=== PATIENT | male | born 1975 | race African-American/Black ===

== ENCOUNTER 2016-11-20 16:23 | Emergency (ER) | payer MEDICARE, MEDICAID ==
[~2016-11-20] VITALS: Ht 182.9 cm; Wt 106.0 kg
[~2016-11-20 16:23] MED LIST: BUPR300T52 PO; FEBU40TA PO; METF500T4 PO; MULT-1146 PO; TRIUMEQ PO
[2016-11-20] MEDS ORDERED: LORAZEPAM 2MG/ML CPJ IV ONE (20:00)
[2016-11-20 20:32] LABS: GLUCOSE URINE NEGATIVE (NEGATIVE); KETONES URINE TRACE (NEGATIVE); LEUKOCYTE ESTERASE URINE NEGATIVE (NEGATIVE); NITRITE URINE NEGATIVE (NEGATIVE); OCCULT BLOOD URINE NEGATIVE (NEGATIVE); PROTEIN URINE NEGATIVE (NEGATIVE); SPECIFIC GRAVITY URINE 1.015 (1.005-1.030); UROBILINOGEN URINE 0.2 E.U./dL (0.2-1.0)
[2016-11-20 20:32] LABS: BASOPHILS % 0.4 % (0.0-2.0); EOSINOPHILS % 0.9 % (0.0-5.0); HEMATOCRIT. 40.5 % (42.0-52.0); HEMOGLOBIN. 13.7 g/dL (14.0-18.0); LYMPHOCYTES % 17.5 % (20.0-50.0); MEAN CORPUSCULAR HEMOGLOBIN 32.8 pg (28.0-32.0); MEAN CORPUSCULAR HGB CONC 33.7 g/dL (31.0-37.0); MEAN CORPUSCULAR VOLUME 97.3 fL (80.0-94.0); MEAN PLATELET VOLUME 9.6 fl (7.4-10.4); MONOCYTES % 8.6 % (2.0-8.0); NEUTROPHILS % 72.6 % (40.0-76.0); PLATELET 195 x1000/uL (130-400); RED BLOOD CELL COUNT 4.16 mill/uL (4.7-6.1); RED CELL DISTRIBUTION WIDTH 13.6 % (11.6-14.6); WHITE BLOOD COUNT 5.7 x1000/uL (4.5-11.0)
[2016-11-20 20:35] LABS: CLARITY URINE CLEAR (CLEAR); COLOR URINE YELLOW (YELLOW)
[2016-11-20 20:40] LABS: *AMPHETAMINES SCREEN URINE PRESUMTIVE POSITIVE (NEGATIVE); *BARBITURATES SCREEN URINE NEGATIVE (NEGATIVE); *BENZODIAZEPINES SCREEN URINE NEGATIVE (NEGATIVE); *COCAINE SCREEN URINE NEGATIVE (NEGATIVE); CANNABINOID URINE SCREEN PRESUMTIVE POSITIVE (NEGATIVE); ECSTASY MDMA SCREEN URINE NEGATIVE (NEGATIVE); METHADONE URINE SCREEN NEGATIVE (NEGATIVE); OPIATES URINE SCREEN PRESUMTIVE POSITIVE (NEGATIVE); PHENCYCLIDINE URINE SCREEN NEGATIVE (NEGATIVE)
[2016-11-20 20:41] LABS: AMMONIA 45 uMol/L (<32); INDEX HEMOLYSI 1 (1-3)
[2016-11-20 20:43] LABS: ACETAMINOPHEN 3 ug/mL (10-30); ALANINE AMINOTRANSFERASE 33 IU/L (13-61); ALBUMIN 4.5 g/dL (3.4-5.0); ANION GAP 14; CALCIUM 8.9 mg/dL (8.5-10.1); CARBON DIOXIDE 27 mEq/L (21-32); CHLORIDE 105 mEq/L (98-107); ETHANOL BLOOD < 10 mg/dL; INDEX HEMOLYSI 1 (1-3); INDEX ICTERIC 1 (1-4); INDEX LIPEMIC 1 (1-3); TROPONIN I < 0.02 ng/mL (0.00-0.04); UREA NITROGEN BLOOD 12 mg/dL (7-21); eGFR > 60 mL/min (>60)
[2016-11-21 06:13] VITALS: BP 130/78
== END 2016-11-21 06:12 | disposition home or self-care (01) ==
LOC: ER 16:23
DX: R41.82 Altered mental status, unspecified (principal); F19.10 Other psychoactive substance abuse, uncomplicated
CPT/HCPCS: 36415; 70450; 80053; 80305; 80307; 80329; 81003; 82140; 84484; 85025; 96374; 99285; G0482; J2060

== ENCOUNTER 2017-04-18 03:43 | Emergency (ER) | payer MEDICARE, MEDICAID ==
[~2017-04-18] VITALS: Ht 167.6 cm; Wt 85.0 kg
[2017-04-18] MEDS ORDERED: KETOROLAC 60MG/2ML VIAL IM ONE (07:30)
[2017-04-18 07:41] VITALS: BP 121/71
== END 2017-04-18 08:09 | disposition home or self-care (01) ==
LOC: ER 03:43
DX: T63.301A Toxic effect of unspecified spider venom, accidental (unintentional), initial encounter (principal); L03.115 Cellulitis of right lower limb; W57.XXXA Bitten or stung by nonvenomous insect and other nonvenomous arthropods, initial encounter; Y93.89 Activity, other specified; Y92.89 Other specified places as the place of occurrence of the external cause; F17.210 Nicotine dependence, cigarettes, uncomplicated; F12.90 Cannabis use, unspecified, uncomplicated; E11.9 Type 2 diabetes mellitus without complications; K50.90 Crohn's disease, unspecified, without complications; Z79.84 Long term (current) use of oral hypoglycemic drugs
CPT/HCPCS: 96372; 99283; J1885

== ENCOUNTER 2017-12-21 13:07 | Emergency (ER) | payer MEDICARE, MEDICAID ==
[~2017-12-21] VITALS: Ht 167.6 cm; Wt 82.0 kg
[2017-12-21 14:29] LABS: BASOPHILS % 0.3 % (0.0-2.0); CHLORIDE 105 mEq/L (98-107); EOSINOPHILS % 1.7 % (0.0-5.0); HEMATOCRIT. 37.4 % (42.0-52.0); HEMOGLOBIN. 13.1 g/dL (14.0-18.0); LYMPHOCYTES % 28.4 % (20.0-50.0); MEAN CORPUSCULAR HEMOGLOBIN 33.1 pg (28.0-32.0); MEAN CORPUSCULAR VOLUME 94.6 fL (80.0-94.0); MONOCYTES % 8.3 % (2.0-8.0); NEUTROPHILS % 61.3 % (40.0-76.0); PLATELET 240 x1000/uL (130-400); RED BLOOD CELL COUNT 3.95 mill/uL (4.7-6.1); RED CELL DISTRIBUTION WIDTH 14.7 % (11.6-14.6)
[2017-12-21 14:32] LABS: CLARITY URINE CLEAR (CLEAR); COLOR URINE YELLOW (YELLOW); KETONES URINE NEGATIVE (NEGATIVE); LEUKOCYTE ESTERASE URINE 1+ (NEGATIVE); NITRITE URINE NEGATIVE (NEGATIVE); OCCULT BLOOD URINE NEGATIVE (NEGATIVE); PROTEIN URINE NEGATIVE (NEGATIVE); SPECIFIC GRAVITY URINE 1.017 (1.005-1.030); UROBILINOGEN URINE 0.2 E.U./dL (0.2-1.0)
[2017-12-21 14:45] VITALS: BP 111/78
[2017-12-21] MEDS ORDERED: KETOROLAC 30MG/ML VIAL IM ONE (14:45)
== END 2017-12-21 16:41 | disposition home or self-care (01) ==
LOC: ER 13:23
DX: R10.9 Unspecified abdominal pain (principal); M79.671 Pain in right foot; M79.672 Pain in left foot; F41.9 Anxiety disorder, unspecified; M10.9 Gout, unspecified; E11.9 Type 2 diabetes mellitus without complications; I10 Essential (primary) hypertension; F31.9 Bipolar disorder, unspecified; K50.90 Crohn's disease, unspecified, without complications; F12.10 Cannabis abuse, uncomplicated; F14.10 Cocaine abuse, uncomplicated; F15.10 Other stimulant abuse, uncomplicated
CPT/HCPCS: 36415; 74176; 80053; 81003; 83690; 85025; 96372; 99285; J1885

== ENCOUNTER 2017-12-30 06:38 | Emergency (ER) | payer MEDICARE, MEDICAID ==
[~2017-12-30] VITALS: Ht 167.6 cm; Wt 88.0 kg
[2017-12-30] MEDS ORDERED: MORPHINE SULFATE 10 MG/ML CPJ IM ONE (07:00)
[2017-12-30] MEDS ORDERED: KETOROLAC 60MG/2ML VIAL IM ONE (07:00)
[2017-12-30 08:15] VITALS: BP 125/68
== END 2017-12-30 08:16 | disposition home or self-care (01) ==
LOC: ER 06:38
DX: M54.5 Low back pain (principal); M46.96 Unspecified inflammatory spondylopathy, lumbar region; E11.9 Type 2 diabetes mellitus without complications; F12.10 Cannabis abuse, uncomplicated; F15.10 Other stimulant abuse, uncomplicated; F11.10 Opioid abuse, uncomplicated
CPT/HCPCS: 96372; 99284; J1885; J2270

== ENCOUNTER 2018-03-18 10:31 | Emergency (ER) | payer MEDICARE, MEDICAID ==
[~2018-03-18] VITALS: Ht 167.6 cm; Wt 80.4 kg
[~2018-03-18 10:31] MED LIST changes: -METF500T4 PO; +METF500T6 PO
[2018-03-18] MEDS ORDERED: SODIUM CHLORIDE 0.9% 1,000 ML IV ONE (16:34)
[2018-03-18] MEDS ORDERED: IPRATROPIUM BROMIDE (0.02%) 0.5MG/2.5ML NEB HHN ONE (16:45)
[2018-03-18] MEDS ORDERED: ALBUTEROL (0.5%) 2.5MG/0.5ML NEB HHN ONE (16:45)
[2018-03-18 17:51] LABS: BASOPHILS % 0.5 % (0.0-2.0); EOSINOPHILS % 2.5 % (0.0-5.0); HEMATOCRIT. 43.4 % (42.0-52.0); LYMPHOCYTES % 39.7 % (20.0-50.0); MEAN CORPUSCULAR HEMOGLOBIN 32.3 pg (28.0-32.0); MEAN CORPUSCULAR VOLUME 93.2 fL (80.0-94.0); MEAN PLATELET VOLUME 9.6 fl (7.4-10.4); MONOCYTES % 10.1 % (2.0-8.0); NEUTROPHILS % 47.2 % (40.0-76.0); PLATELET 205 x1000/uL (130-400); RED BLOOD CELL COUNT 4.65 mill/uL (4.7-6.1); RED CELL DISTRIBUTION WIDTH 14.1 % (11.6-14.6)
[2018-03-18 17:53] LABS: CHLORIDE 106 mEq/L (98-107)
[2018-03-18] MEDS ORDERED: IBUPROFEN 600MG TABLET PO ONE (19:45)
[2018-03-18] MEDS ORDERED: POTASSIUM CHLORIDE 20MEQ TABLET SR PO ONE (19:45)
[2018-03-18 21:30] VITALS: BP 101/59
== END 2018-03-18 21:30 | disposition home or self-care (01) ==
LOC: ER 11:18
DX: E87.6 Hypokalemia (principal); J40 Bronchitis, not specified as acute or chronic; F41.9 Anxiety disorder, unspecified; K75.9 Inflammatory liver disease, unspecified; E11.9 Type 2 diabetes mellitus without complications; K40.00 Bilateral inguinal hernia, with obstruction, without gangrene, not specified as recurrent; E27.1 Primary adrenocortical insufficiency; F12.10 Cannabis abuse, uncomplicated; F11.10 Opioid abuse, uncomplicated; F15.10 Other stimulant abuse, uncomplicated; F17.200 Nicotine dependence, unspecified, uncomplicated; Z79.899 Other long term (current) drug therapy
CPT/HCPCS: 36415; 71045; 80053; 85025; 87040; 93005; 94640; 99285; J7030; J7611

== ENCOUNTER 2018-04-30 00:17 | Emergency (ER) | payer MEDICARE, MEDICAID ==
[~2018-04-30] VITALS: Ht 167.6 cm; Wt 81.0 kg
[2018-04-30] MEDS ORDERED: SODIUM CHLORIDE 0.9% 1,000 ML IV ONE (01:34)
[2018-04-30] MEDS ORDERED: FAMOTIDINE 20MG/2ML VIAL IV STA (01:34)
[2018-04-30] MEDS ORDERED: KETOROLAC 30MG/ML VIAL IV STA (01:34)
[2018-04-30] MEDS ORDERED: ONDANSETRON HCL 4MG/2ML VIAL IV STA (01:34)
[2018-04-30 02:27] LABS: BASOPHILS % 0.4 % (0.0-2.0); EOSINOPHILS % 0.5 % (0.0-5.0); HEMATOCRIT. 39.3 % (42.0-52.0); HEMOGLOBIN. 13.5 g/dL (14.0-18.0); LYMPHOCYTES % 28.9 % (20.0-50.0); MEAN CORPUSCULAR HEMOGLOBIN 32.5 pg (28.0-32.0); MEAN CORPUSCULAR VOLUME 94.5 fL (80.0-94.0); MEAN PLATELET VOLUME 9.4 fl (7.4-10.4); MONOCYTES % 8.9 % (2.0-8.0); NEUTROPHILS % 61.3 % (40.0-76.0); PLATELET 217 x1000/uL (130-400); RED BLOOD CELL COUNT 4.16 mill/uL (4.7-6.1); RED CELL DISTRIBUTION WIDTH 14.1 % (11.6-14.6)
[2018-04-30 02:32] LABS: INR 1.1; PROTHROMBIN TIME 10.7 sec (9.1-11.1)
[2018-04-30 02:35] LABS: CHLORIDE 105 mEq/L (98-107)
[2018-04-30 04:44] LABS: CLARITY URINE CLOUDY (CLEAR); COLOR URINE YELLOW (YELLOW); KETONES URINE TRACE (NEGATIVE); LEUKOCYTE ESTERASE URINE TRACE (NEGATIVE); NITRITE URINE NEGATIVE (NEGATIVE); OCCULT BLOOD URINE NEGATIVE (NEGATIVE); PROTEIN URINE NEGATIVE (NEGATIVE); SPECIFIC GRAVITY URINE 1.022 (1.005-1.030)
[2018-04-30 04:53] LABS: *AMPHETAMINES SCREEN URINE PRESUMTIVE POSITIVE (NEGATIVE); *BARBITURATES SCREEN URINE NEGATIVE (NEGATIVE)
[2018-04-30 04:54] LABS: *BENZODIAZEPINES SCREEN URINE NEGATIVE (NEGATIVE); *COCAINE SCREEN URINE NEGATIVE (NEGATIVE); METHADONE URINE SCREEN NEGATIVE (NEGATIVE); OPIATES URINE SCREEN NEGATIVE (NEGATIVE); PHENCYCLIDINE URINE SCREEN NEGATIVE (NEGATIVE)
[2018-04-30 04:55] LABS: CANNABINOID URINE SCREEN PRESUMTIVE POSITIVE (NEGATIVE)
[2018-04-30 05:36] VITALS: BP 104/66
== END 2018-04-30 05:38 | disposition home or self-care (01) ==
LOC: ER 00:17
DX: F16.10 Hallucinogen abuse, uncomplicated (principal); N39.0 Urinary tract infection, site not specified; M79.1 Myalgia; F17.200 Nicotine dependence, unspecified, uncomplicated; F12.10 Cannabis abuse, uncomplicated; F15.10 Other stimulant abuse, uncomplicated; K50.90 Crohn's disease, unspecified, without complications; Z98.890 Other specified postprocedural states; Z87.19 Personal history of other diseases of the digestive system
CPT/HCPCS: 36415; 80053; 80305; 81003; 83690; 85025; 85610; 96361; 96374; 96375; 99285; J1885; J2405; J3490; J7030

== ENCOUNTER 2018-05-24 21:33 | Emergency (ER) | payer MEDICARE, MEDICAID ==
[~2018-05-24] VITALS: Ht 165.1 cm; Wt 68.5 kg
[~2018-05-24 21:33] MED LIST changes: +METF-414 PO; -METF500T6 PO
[2018-05-24] MEDS ORDERED: SODIUM CHLORIDE 0.9% 1,000 ML IV ONE (22:57)
[2018-05-24 23:44] LABS: BASOPHILS % 0.3 % (0.0-2.0); CHLORIDE 107 mEq/L (98-107); EOSINOPHILS % 1.1 % (0.0-5.0); HEMATOCRIT. 37.7 % (42.0-52.0); HEMOGLOBIN. 12.8 g/dL (14.0-18.0); LYMPHOCYTES % 37.4 % (20.0-50.0); MEAN CORPUSCULAR HEMOGLOBIN 32.7 pg (28.0-32.0); MEAN CORPUSCULAR VOLUME 95.8 fL (80.0-94.0); MEAN PLATELET VOLUME 9.5 fl (7.4-10.4); MONOCYTES % 8.9 % (2.0-8.0); NEUTROPHILS % 52.3 % (40.0-76.0); PLATELET 258 x1000/uL (130-400); RED BLOOD CELL COUNT 3.93 mill/uL (4.7-6.1); RED CELL DISTRIBUTION WIDTH 14.7 % (11.6-14.6)
[2018-05-25] MEDS ORDERED: HYDROCODONE/ACETAMINOPHEN 5/325MG TABLET PO ONE (01:00)
[2018-05-25 01:59] VITALS: BP 108/62
== END 2018-05-25 02:00 | disposition home or self-care (01) ==
LOC: ER 21:33
DX: E86.0 Dehydration (principal); M79.605 Pain in left leg; F31.9 Bipolar disorder, unspecified; F17.200 Nicotine dependence, unspecified, uncomplicated; R07.9 Chest pain, unspecified; R51 Headache; Z79.899 Other long term (current) drug therapy
CPT/HCPCS: 36415; 70450; 71045; 73590; 80053; 80305; 81003; 84484; 84550; 85025; 85610; 85730; 93005; 93971; 96360; 96361; 96374; 96375; 99285; G0482; J2270; J2405; J7030; J8597

== ENCOUNTER 2018-05-25 09:33 | Emergency (ER) | payer MEDICARE, MEDICAID ==
[~2018-05-25] VITALS: Ht 167.6 cm; Wt 79.7 kg
[~2018-05-25 09:33] MED LIST changes: -METF-414 PO; +METF500T6 PO
[2018-05-25] MEDS ORDERED: MORPHINE SULFATE 4 MG/ML CPJ (NOT FOR IM USE) IV ONE (10:00)
[2018-05-25] MEDS ORDERED: ONDANSETRON HCL 4MG/2ML INJ IV ONE (10:00)
[2018-05-25 10:31] LABS: BASOPHILS % 0.4 % (0.0-2.0); EOSINOPHILS % 0.7 % (0.0-5.0); HEMOGLOBIN. 12.9 g/dL (14.0-18.0); MEAN CORPUSCULAR HEMOGLOBIN 33.1 pg (28.0-32.0); MEAN PLATELET VOLUME 9.5 fl (7.4-10.4); MONOCYTES % 8.2 % (2.0-8.0); NEUTROPHILS % 55.7 % (40.0-76.0); PLATELET 257 x1000/uL (130-400); RED BLOOD CELL COUNT 3.89 mill/uL (4.7-6.1); RED CELL DISTRIBUTION WIDTH 14.5 % (11.6-14.6)
[2018-05-25 10:32] LABS: CHLORIDE 108 mEq/L (98-107)
[2018-05-25 10:36] LABS: PARTIAL THROMBOPLASTIN TIME 30.8 sec (23.4-31.0)
[2018-05-25 10:39] LABS: ETHANOL BLOOD < 10 mg/dL
[2018-05-25] MEDS ORDERED: MECLIZINE 25MG TABLET PO ONE (11:15)
[2018-05-25 11:46] LABS: CLARITY URINE CLEAR (CLEAR); COLOR URINE YELLOW (YELLOW); KETONES URINE NEGATIVE (NEGATIVE); LEUKOCYTE ESTERASE URINE NEGATIVE (NEGATIVE); NITRITE URINE NEGATIVE (NEGATIVE); OCCULT BLOOD URINE NEGATIVE (NEGATIVE); PH URINE 6.5 (4.5-8.0); PROTEIN URINE NEGATIVE (NEGATIVE); SPECIFIC GRAVITY URINE 1.014 (1.005-1.030); UROBILINOGEN URINE 0.2 E.U./dL (0.2-1.0)
[2018-05-25 11:52] VITALS: BP 109/76
[2018-05-25 12:37] LABS: *AMPHETAMINES SCREEN URINE PRESUMTIVE POSITIVE (NEGATIVE); *BARBITURATES SCREEN URINE NEGATIVE (NEGATIVE); *BENZODIAZEPINES SCREEN URINE NEGATIVE (NEGATIVE)
[2018-05-25 12:38] LABS: *COCAINE SCREEN URINE NEGATIVE (NEGATIVE); CANNABINOID URINE SCREEN PRESUMTIVE POSITIVE (NEGATIVE); METHADONE URINE SCREEN NEGATIVE (NEGATIVE); OPIATES URINE SCREEN PRESUMTIVE POSITIVE (NEGATIVE); PHENCYCLIDINE URINE SCREEN NEGATIVE (NEGATIVE)
== END 2018-05-25 11:53 | disposition home or self-care (01) ==
LOC: ER 09:33
DX: R51 Headache (principal); R42 Dizziness and giddiness; E11.9 Type 2 diabetes mellitus without complications; B20 Human immunodeficiency virus [HIV] disease; F17.200 Nicotine dependence, unspecified, uncomplicated; F12.10 Cannabis abuse, uncomplicated; I95.9 Hypotension, unspecified; Z98.890 Other specified postprocedural states
CPT/HCPCS: 36415; 70450; 80053; 80305; 81003; 84484; 85025; 85610; 85730; 93005; 96374; 96375; 99285; G0482; J2270; J2405; J8597

== ENCOUNTER 2018-05-28 05:47 | Emergency (ER) | payer MEDICARE, MEDICAID ==
[~2018-05-28] VITALS: Ht 167.6 cm; Wt 79.7 kg
[2018-05-28] MEDS ORDERED: KETOROLAC 60MG/2ML VIAL IM ONE (08:15)
[2018-05-28 09:17] VITALS: BP 110/72
== END 2018-05-28 09:17 | disposition home or self-care (01) ==
LOC: ER 05:47
DX: M79.662 Pain in left lower leg (principal); I10 Essential (primary) hypertension; E11.9 Type 2 diabetes mellitus without complications; F17.200 Nicotine dependence, unspecified, uncomplicated; F12.10 Cannabis abuse, uncomplicated; Z98.890 Other specified postprocedural states; Z79.84 Long term (current) use of oral hypoglycemic drugs
CPT/HCPCS: 96372; 99283; J1885

== ENCOUNTER 2022-03-01 11:09 | Emergency (ER) | payer MEDICARE, MEDICAID ==
[~2022-03-01] VITALS: Ht 160 cm; Wt 99.0 kg
[~2022-03-01 11:09] MED LIST changes: +METF-414 PO; -METF500T6 PO
[2022-03-01] MEDS ORDERED: LIDOCAINE HCL/PF 1% 10 MG/ML 5ML VIAL INFIL ONE (14:30)
[2022-03-01] MEDS ORDERED: KETOROLAC 60MG/2ML VIAL IM ONE (14:30)
[2022-03-01] MEDS ORDERED: BACITRACIN ZINC OINT UDPKT TOP ONE (14:30)
[2022-03-01 14:57] VITALS: BP 149/83
[2022-03-01] MEDS ORDERED: CEPH500T MT (15:11)
[2022-03-01] MEDS ORDERED: SULF1TAB48 MT (15:11)
== END 2022-03-01 15:43 | disposition home or self-care (01) ==
LOC: ER 11:09
DX: L02.415 Cutaneous abscess of right lower limb (principal); F12.10 Cannabis abuse, uncomplicated; I10 Essential (primary) hypertension; E11.9 Type 2 diabetes mellitus without complications; Z98.890 Other specified postprocedural states
CPT/HCPCS: 10060; 96372; 99284; J1885; J3490